=== PATIENT | female | born 1985 | race African-American/Black ===

== ENCOUNTER 2023-03-23 23:45 | Inpatient (IN) | payer OTHER ==
[2023-03-24 00:56] LABS: BASO % 0.3 % (0-2.0); EOS % 0.2 % (0-4.5); HEMATOCRIT 40.7 % (32.4-45.2); LYMPH % 21.8 % (8-40); MCH 27.1 pg (25.7-33.7); MCHC 31.9 g/dl (32.0-36.0); MEAN CELL VOLUME 85.1 fl (80-96); MEAN PLT VOLUME 8.3 fl (7.5-11.1); MONO % 8.3 % (3.8-10.2); NEUT % 69.4 % (42.8-82.8); PLATELET COUNT 283 10^3/uL (134-434); RBC 4.79 M/mm3 (3.60-5.2); WHITE BLOOD COUNT 7.2 K/mm3 (4.0-10.0)
[2023-03-24 00:59] LABS: CORD BASE EXCESS -3.9 mmol/L (0-2); CORD HCO3 22.6 mmHg (20-29); CORD PCO2 46.8 mmHg (30-78); CORD pH 7.302 (7.14-7.44)
[2023-03-24] MEDS ORDERED: IBUPROFEN 600 MG TABLET (FP) PO PRN (01:04)
[2023-03-24] MEDS ORDERED: BENZOCAINE 28 GM HEMORRHOIDAL OINTMENT TP PRN (01:04)
[2023-03-24] MEDS ORDERED: oxyCODONE HCL 5 MG TABLET PO PRN (01:04)
[2023-03-24] MEDS ORDERED: WITCH HAZEL 50% (TUCKS) 40 PAD/JAR PAD TP PRN (01:04)
[2023-03-24] MEDS ORDERED: BENZOCAINE 20% 57 GM BOTTLE TP PRN (01:04)
[2023-03-24] MEDS ORDERED: ACETAMINOPHEN 325 MG TABLET (FP) PO PRN (01:04)
[2023-03-24] MEDS ORDERED: BISACODYL 10 MG SUPP.RECT RC PRN (01:04)
[2023-03-24] MEDS ORDERED: LABETALOL HCL 5 MG/1 ML (100MG/20 ML VIAL) IVPUSH ONE (01:12)
[2023-03-24] MEDS ORDERED: OXYTOCIN 20 UNITS in 0.9% NS 20 UNIT/1,000 ML INFUS.BAG IV SCH ×2 (01:15→06:05)
[2023-03-24 01:20] LABS: POTASSIUM 3.4 mmol/L (3.5-5.1)
[2023-03-24 01:22] LABS: CALCIUM 8.8 mg/dL (8.5-10.1)
[2023-03-24 01:23] LABS: ALBUMIN 2.8 g/dl (3.4-5.0); BLOOD UREA NITROGEN 6.8 mg/dL (7-18)
[2023-03-24 01:26] LABS: CREATININE 0.6 mg/dL (0.55-1.3)
[2023-03-24 01:28] LABS: BILIRUBIN,TOTAL 0.2 mg/dL (0.2-1); TOT PROT 6.6 g/dl (6.4-8.2)
[2023-03-24 02:15] LABS: INR 0.9 (0.83-1.09); PROTHROMBIN TIME (PATIENT) 10.4 SEC (9.7-13.0)
[2023-03-24 02:17] LABS: ACTIVATED PTT 27.4 SECONDS (25.2-36.5)
[2023-03-24] MEDS ORDERED: OXYTOCIN 10 UNITS/ML VIAL IM ONE (02:20)
[2023-03-24] MEDS ORDERED: LABETALOL HCL 200 MG TABLET (FP) ONE (02:20)
[2023-03-24] MEDS: LABETALOL HCL 200 MG TABLET (FP) PO SCH ×4 (02:23→22:14)
[2023-03-24 02:24] LABS: METHADONE, UR NEGATIVE (NEGATIVE); OPIATES, URI NEGATIVE (NEGATIVE); PHENCYCLIDINE,URINE NEGATIVE (NEGATIVE); URINE BARBITURATES NEGATIVE (NEGATIVE); URINE BENZODIAZEPINES NEGATIVE (NEGATIVE)
[2023-03-24 02:30] LABS: COCAINE, UR NEGATIVE (NEGATIVE); URINE AMPHETAMINES NEGATIVE (NEGATIVE)
[2023-03-24 02:45] VITALS: BMI 27.3
[2023-03-24] MEDS: FERROUS SO4 325 MG TABLET (FP) PO SCH ×3 (08:03→17:35)
[2023-03-24] MEDS: PRENATAL VITAMINS W/ FOLIC ACID TABLET (FP) PO SCH (09:28)
[2023-03-24 11:43] LABS: SYPHILIS W/ RPR CONF NON-REACTIVE (NONREACTIVE)
[2023-03-24 11:44] LABS: HEPATITIS B SURFACE AG MATERN NON-REACTIVE (NONREACTIVE)
[2023-03-24 12:12] LABS: HIV INTERPRETATION NEGATIVE (NEGATIVE)
[2023-03-25] MEDS: LABETALOL HCL 200 MG TABLET (FP) PO SCH ×2 (06:06→14:00)
[2023-03-25 08:23] LABS: BASO % 0.3 % (0-2.0); HEMATOCRIT 30.2 % (32.4-45.2); HEMOGLOBIN 9.8 GM/dL (10.7-15.3); LYMPH % 28.6 % (8-40); MCH 27.6 pg (25.7-33.7); MCHC 32.4 g/dl (32.0-36.0); MEAN CELL VOLUME 85.1 fl (80-96); MEAN PLT VOLUME 8.1 fl (7.5-11.1); MONO % 9.5 % (3.8-10.2); NEUT % 60.6 % (42.8-82.8); PLATELET COUNT 209 10^3/uL (134-434); RBC 3.55 M/mm3 (3.60-5.2); WHITE BLOOD COUNT 7.1 K/mm3 (4.0-10.0)
[2023-03-25] MEDS: FERROUS SO4 325 MG TABLET (FP) PO SCH ×2 (08:47→12:56)
[2023-03-25] MEDS: PRENATAL VITAMINS W/ FOLIC ACID TABLET (FP) PO SCH (09:37)
[2023-03-25 14:00] VITALS: BP 130/79; PULSE 95; RESP 18; TEMP 98.7
[2023-03-25] MEDS ORDERED: SENNOSIDES/DOCUSATE COMBO (SENNA PLUS) TABLET (UD) PO PRN (22:00)
== END 2023-03-25 16:20 | disposition home or self-care (01) | DRG 560 ==
LOC: JLDR 23:45 → J3W 03-24 04:04
PROVIDERS: ADMIT Obstetrics & Gynecology; ATTEND Obstetrics & Gynecology
PROC: 10E0XZZ Delivery of Products of Conception, External Approach (ICD-10-PCS; principal; 2023-03-23)
DX: O48.0 Post-term pregnancy (principal); O16.4 Unspecified maternal hypertension, complicating childbirth; Z3A.41 41 weeks gestation of pregnancy; Z37.0 Single live birth
CPT/HCPCS: 36415; 36600; 80053; 80307; 82803; 85025; 85610; 85730; 86780; 86850; 86900; 86901; 87340; 87389